=== PATIENT | female | born 1980 | race African-American/Black ===

== ENCOUNTER 2024-01-29 08:18 | Emergency (ER) | payer MEDICAID, OTHER ==
[~2024-01-29] VITALS: Ht 165.1 cm; Wt 91.0 kg
[2024-01-29 08:25] VITALS: TEMP 98.2; O2SAT 100
[2024-01-29] MEDS: FLUORESCEIN SODIUM 1MG/STRIP LEFTEYE ONE (09:14)
[2024-01-29] MEDS: TETRACAINE 0.5% OPHTH DROPS 4ML LEFTEYE ONE (09:14)
[2024-01-29] MEDS ORDERED: CIPR2.5D20 LEFTEYE (09:30)
[2024-01-29 09:55] VITALS: BP 137/85; PULSE 65; RESP 16
[2024-01-29] MEDS: IBUPROFEN 600MG TABLET PO ONE (09:55)
== END 2024-01-29 09:47 | disposition home or self-care (01) ==
LOC: ER 08:18
DX: S00.212A Abrasion of left eyelid and periocular area, initial encounter (principal); X58.XXXA Exposure to other specified factors, initial encounter; Y93.89 Activity, other specified; Y92.89 Other specified places as the place of occurrence of the external cause; Y99.8 Other external cause status
CPT/HCPCS: 99283